=== PATIENT | female | born 1975 | race Hispanic/Latino ===

== ENCOUNTER 2017-08-04 15:19 | Emergency (ER) | payer SELFPAY ==
[2017-08-04 15:47] LABS: APPEARANCE,URINE Clear (CLEAR); BILIRUBIN,URINE Negative (NEGATIVE); COLOR,URINE Yellow (YELLOW); GLUCOSE, URINE (UA) Negative (NEGATIVE); KETONES,URINE Negative (NEGATIVE); LEUKOCYTE ESTERASE ,URINE Trace (NEGATIVE); NITRATE,URINE Negative (NEGATIVE); OCCULT BLOOD,URINE Negative (NEGATIVE); PH,URINE 5.5 (5.0-8.0); PROTEIN,URINE Negative (NEGATIVE); UROBILINOGEN,URINE 0.2 mg/dL (0.2-1.0)
[2017-08-04 15:49] LABS: BASOPHILS % (AUTO) 0.5 % (0.0-5.0); EOSINOPHILS % (AUTO) 2.6 % (0.0-8.0); HEMATOCRIT 42.6 % (36-48); LYMPHOCYTES % (AUTO) 30.9 % (21.0-51.0); MEAN CORPUSCULAR HGB CONC 32.3 g/dL (32.0-36.0); MEAN CORPUSCULAR VOLUME 68.2 fL (79-99); MONOCYTES % (AUTO) 5.6 % (3.0-13.0); NEUTROPHILS % (AUTO) 60.4 % (40.0-77.0); PLATELET COUNT (AUTO) 327 K/uL (130-400); RED BLOOD CELL COUNT(AUTO) 6.25 MIL/uL (4.00-5.50); RED CELL DISTRIBUTION WIDTH 15.1 % (11.0-15.5); WHITE BLOOD COUNT (AUTO) 11.3 K/uL (4.8-10.8)
[2017-08-04 15:54] LABS: AMPHET/METH SCREEN,URINE NEGATIVE (NEGATIVE); BARBITURATE SCREEN, URINE NEGATIVE (NEGATIVE); BENZODIAZEPINES SCREEN,URINE NEGATIVE (NEGATIVE); CANNABINOID SCREEN,URINE NEGATIVE (NEGATIVE); COCAINE SCREEN,URINE NEGATIVE (NEGATIVE); OPIATE SCREEN,URINE NEGATIVE (NEGATIVE); PHENCYCLIDINE SCREEN,URINE NEGATIVE (NEGATIVE)
[2017-08-04 15:56] LABS: BACTERIA,URINE Rare /HPF (None Seen); RBC,URINE None Seen /HPF (0-1); SQUAMOUS EPITHELIAL CELL,UR 0-2 /HPF (0-2); TRICHOMONAS,URINE Rare /LPF (None Seen); WBC,URINE 0-1 /HPF (0-1)
[2017-08-04 16:02] LABS: CREATININE 0.7 mg/dL (0.5-1.5)
[2017-08-04 16:04] LABS: ALBUMIN 3.6 g/dL (3.5-5.0); BILIRUBIN,TOTAL 0.3 mg/dL (0.2-1.0); TOTAL PROTEIN, SERUM 7.4 g/dL (6.0-8.3)
== END 2017-08-04 16:48 | disposition home or self-care (01) ==
LOC: EDH 15:19
DX: R53.1 Weakness (principal); E86.0 Dehydration; F41.1 Generalized anxiety disorder; I10 Essential (primary) hypertension; F20.9 Schizophrenia, unspecified; F31.9 Bipolar disorder, unspecified; Z90.710 Acquired absence of both cervix and uterus; Z98.890 Other specified postprocedural states; Z87.891 Personal history of nicotine dependence
CPT/HCPCS: 36415; 80053; 80305; 81001; 85025

== ENCOUNTER 2019-02-15 18:22 | Emergency (ER) | payer OTHER ==
[2019-02-15] MEDS ORDERED: ONDANSETRON ODT 4 MG TAB ONE (19:01)
[2019-02-15] MEDS ORDERED: MECLIZINE HCL 25 MG TABLET ONE (19:01)
[2019-02-15 19:14] LABS: APPEARANCE,URINE Clear (CLEAR); BILIRUBIN,URINE Negative (NEGATIVE); COLOR,URINE Yellow (YELLOW); GLUCOSE, URINE (UA) Negative (NEGATIVE); KETONES,URINE Negative (NEGATIVE); LEUKOCYTE ESTERASE ,URINE Small (NEGATIVE); NITRATE,URINE Negative (NEGATIVE); OCCULT BLOOD,URINE Negative (NEGATIVE); PROTEIN,URINE Negative (NEGATIVE)
[2019-02-15 19:17] LABS: BASOPHILS % (AUTO) 0.7 % (0.0-5.0); EOSINOPHILS % (AUTO) 2.6 % (0.0-8.0); MEAN CORPUSCULAR HEMOGLOBIN 21.7 pg (27.0-33.0); MEAN CORPUSCULAR HGB CONC 30.4 g/dL (32.0-36.0); MEAN CORPUSCULAR VOLUME 71.3 fL (79-99); NEUTROPHILS % (AUTO) 57.3 % (40.0-77.0); PLATELET COUNT (AUTO) 400 K/uL (130-400); RED BLOOD CELL COUNT(AUTO) 6.59 MIL/uL (4.00-5.50); RED CELL DISTRIBUTION WIDTH 16.3 % (11.0-15.5); WHITE BLOOD COUNT (AUTO) 11.7 K/uL (4.8-10.8)
[2019-02-15 19:26] LABS: BACTERIA,URINE Few /HPF (None Seen); MUCUS,URINE Few LPF (None Seen); SQUAMOUS EPITHELIAL CELL,UR Few /HPF (0-2)
[2019-02-15 19:26] LABS: CREATININE 0.8 mg/dL (0.5-1.5); POTASSIUM 3.7 mmol/L (3.5-5.1)
[2019-02-15 19:31] LABS: ALBUMIN 3.6 g/dL (3.5-5.0); BILIRUBIN,TOTAL 0.3 mg/dL (0.2-1.0); TOTAL PROTEIN, SERUM 7.8 g/dL (6.0-8.3)
== END 2019-02-15 21:55 | disposition home or self-care (01) ==
LOC: EDH 18:22
DX: H81.10 Benign paroxysmal vertigo, unspecified ear (principal); F20.9 Schizophrenia, unspecified; I10 Essential (primary) hypertension; F32.9 Major depressive disorder, single episode, unspecified; Z90.710 Acquired absence of both cervix and uterus; Z98.890 Other specified postprocedural states; Z87.891 Personal history of nicotine dependence
CPT/HCPCS: 36415; 80053; 81001; 85025

== ENCOUNTER 2022-05-30 19:15 | Emergency (ER) | payer OTHER ==
[~2022-05-30] VITALS: Ht 149.9 cm; Wt 103.9 kg
[2022-05-30 19:52] LABS: BASOPHILS % (AUTO) 0.7 % (0.0-5.0); EOSINOPHILS % (AUTO) 3.5 % (0.0-8.0); HEMATOCRIT 48.5 % (36-48); LYMPHOCYTES % (AUTO) 27.1 % (21.0-51.0); MEAN CORPUSCULAR HEMOGLOBIN 21.7 pg (27.0-33.0); MEAN CORPUSCULAR HGB CONC 30.5 g/dL (32.0-36.0); MEAN CORPUSCULAR VOLUME 71.2 fL (79-99); MONOCYTES % (AUTO) 4.4 % (3.0-13.0); NEUTROPHILS % (AUTO) 63.9 % (40.0-77.0); PLATELET COUNT (AUTO) 414 K/uL (130-400); RED BLOOD CELL COUNT(AUTO) 6.81 MIL/uL (4.00-5.50); RED CELL DISTRIBUTION WIDTH 17.4 % (11.0-15.5); WHITE BLOOD COUNT (AUTO) 15.8 K/uL (4.8-10.8)
[2022-05-30 19:55] LABS: APPEARANCE,URINE CLEAR (CLEAR); BILIRUBIN,URINE NEGATIVE (NEGATIVE); COLOR,URINE DARK-YELLOW (YELLOW); GLUCOSE, URINE (UA) NEGATIVE (NEGATIVE); KETONES,URINE NEGATIVE (NEGATIVE); LEUKOCYTE ESTERASE ,URINE 75 Leu/uL (NEGATIVE); NITRATE,URINE NEGATIVE (NEGATIVE); PH,URINE 5.5 (5.0-8.0); PROTEIN,URINE 30 mg/dL (NEGATIVE); UROBILINOGEN,URINE 0.2 mg/dL (0.2-1.0)
[2022-05-30 19:59] LABS: BACTERIA,URINE RARE /HPF (None Seen); MUCUS,URINE RARE LPF (None Seen); RBC,URINE 0-1 /HPF (0-1); SQUAMOUS EPITHELIAL CELL,UR RARE /HPF (0-2); WBC,URINE 26-50 /HPF (0-1)
[2022-05-30 20:00] LABS: CREATININE 0.7 mg/dL (0.5-1.5); POTASSIUM 3.7 mmol/L (3.5-5.1)
[2022-05-30 20:05] LABS: ALBUMIN 3.9 g/dL (3.5-5.0)
[2022-05-30 20:31] VITALS: BP 113/59
[2022-05-30] MEDS ORDERED: CEFTRIAXONE 1G VIAL ONE (20:55)
[2022-05-30] MEDS ORDERED: ONDANSETRON 4MG INJ ONE (20:55)
[2022-05-30] MEDS ORDERED: KETOROLAC 15MG/ML VIAL (15MG/ML) ONE (20:55)
[2022-05-30] MEDS ORDERED: ONDANSETRON 4MG INJ IVP ONE (21:00)
[2022-05-30] MEDS ORDERED: KETOROLAC 15MG/ML VIAL (15MG/ML) IV ONE (21:00)
[2022-05-30] MEDS ORDERED: CEFTRIAXONE 1G VIAL IVPB ONE (21:00)
[2022-05-30] MEDS ORDERED: 0.9%NACL 1000ML 1,000 ML IV ONE (21:00)
[2022-05-30] MEDS ORDERED: IOHEXOL 350 MG/ML 100ML INFUS..BTL IV ONE (21:11)
[2022-05-30] MEDS ORDERED: ONDA-104 PO (22:06)
[2022-05-30] MEDS ORDERED: CEPH500C2 PO (22:06)
[2022-05-30] MEDS ORDERED: PHEN-847 PO (22:06)
[2022-05-30] MEDS ORDERED: IBUP-2070 PO (22:06)
[2022-05-30] MEDS ORDERED: PHENAZOPYRIDINE HCL 200 MG TABLET PO ONE (22:30)
== END 2022-05-30 22:18 | disposition home or self-care (01) ==
LOC: EDH 19:15
DX: N12 Tubulo-interstitial nephritis, not specified as acute or chronic (principal); I10 Essential (primary) hypertension; K21.9 Gastro-esophageal reflux disease without esophagitis; Z90.89 Acquired absence of other organs; Z90.710 Acquired absence of both cervix and uterus
CPT/HCPCS: 99285; 74177; 96374; 96375; 80053; 85025; 87088; 81001; 81025; 36415; J0696; J2405; J1885; Q9967; 87077; 87186

== ENCOUNTER 2023-08-06 13:04 | Emergency (ER) | payer BC ==
[~2023-08-06] VITALS: Ht 149.9 cm; Wt 108.9 kg
[~2023-08-06 13:04] MED LIST: CEPH500C2 PO; IBUP-2070 PO; IBUP-2077 PO; LEVO-70 PO; ONDA-104 PO; PHEN-847 PO
[2023-08-06 15:52] LABS: BASOPHILS % (AUTO) 0.7 % (0.0-5.0); EOSINOPHILS % (AUTO) 2.9 % (0.0-8.0); HEMATOCRIT 46.3 % (36-48); IMMATURE GRANULOCYTE ABSOLUTE 0.06 K/uL (0-1); LYMPHOCYTES # (AUTO) 3.7 K/uL (1.0-4.8); LYMPHOCYTES % (AUTO) 27.3 % (21.0-51.0); MEAN CORPUSCULAR HEMOGLOBIN 21.7 pg (27.0-33.0); MEAN CORPUSCULAR HGB CONC 30.9 g/dL (32.0-36.0); MEAN CORPUSCULAR VOLUME 70.4 fL (79-99); MONOCYTES # (AUTO) 0.7 K/uL (0.1-1.0); NEUTROPHILS # (AUTO) 8.7 K/uL (1.8-7.7); NEUTROPHILS % (AUTO) 63.7 % (40.0-77.0); PLATELET COUNT (AUTO) 355 K/uL (130-400); RED BLOOD CELL COUNT(AUTO) 6.58 MIL/uL (4.00-5.50); RED CELL DISTRIBUTION WIDTH 17.3 % (11.0-15.5); WHITE BLOOD COUNT (AUTO) 13.7 K/uL (4.8-10.8)
[2023-08-06 15:58] LABS: APPEARANCE,URINE CLEAR (CLEAR); BILIRUBIN,URINE NEGATIVE (NEGATIVE); COLOR,URINE COLORLESS (YELLOW); GLUCOSE, URINE (UA) NEGATIVE (NEGATIVE); KETONES,URINE NEGATIVE (NEGATIVE); LEUKOCYTE ESTERASE ,URINE 250 Leu/uL (NEGATIVE); NITRATE,URINE NEGATIVE (NEGATIVE); OCCULT BLOOD,URINE NEGATIVE (NEGATIVE); PROTEIN,URINE NEGATIVE (NEGATIVE); UROBILINOGEN,URINE 0.2 mg/dL (0.2-1.0)
[2023-08-06 16:01] LABS: CREATININE 0.7 mg/dL (0.5-1.0); POTASSIUM 4.2 mmol/L (3.5-5.1)
[2023-08-06 16:03] LABS: INR 0.98 (0.85-1.15); PROTHROMBIN TIME 10.6 SEC (9.6-11.6)
[2023-08-06 16:04] LABS: PARTIAL THROMBOPLASTIN TIME 25.3 SEC (26.3-35.5)
[2023-08-06 16:05] LABS: BACTERIA,URINE RARE /HPF (None Seen); SQUAMOUS EPITHELIAL CELL,UR FEW /HPF (0-2)
[2023-08-06 16:05] LABS: ALBUMIN 3.4 g/dL (3.5-5.0); BILIRUBIN,TOTAL 0.3 mg/dL (0.2-1.0); TOTAL PROTEIN, SERUM 7.3 g/dL (6.0-8.3)
[2023-08-06 16:09] LABS: HCG,QUALITATIVE URINE NEGATIVE (NEGATIVE)
[2023-08-06] MEDS ORDERED: CEPH500T PO (17:11)
[2023-08-06] MEDS: ONDANSETRON 4MG INJ IVP ONE (17:31)
[2023-08-06] MEDS: 0.9%NACL 1000ML 1,000 ML IV ONE (17:31)
[2023-08-06] MEDS: CEFTRIAXONE 2GM VIAL IVPB ONE (17:31)
[2023-08-06] MEDS: KETOROLAC 60 MG VIAL (30MG/ML) IM ONE (17:32)
[2023-08-06 18:06] VITALS: BP 148/72; PULSE 72; RESP 18; O2SAT 98
== END 2023-08-06 18:38 | disposition home or self-care (01) ==
LOC: EDH 13:04
DX: N39.0 Urinary tract infection, site not specified (principal); I10 Essential (primary) hypertension; Z90.710 Acquired absence of both cervix and uterus; Z98.890 Other specified postprocedural states
CPT/HCPCS: 99284; 96365; 70450; 96375; 80053; 85025; 85610; 85730; 81001; 81025; 36415; 96372; J7030; J0696; J2405; J1885

== ENCOUNTER 2024-03-19 08:21 | Emergency (ER) | payer BC ==
[~2024-03-19] VITALS: Ht 149.9 cm; Wt 105.2 kg
[~2024-03-19 08:21] MED LIST changes: +CEPH500T PO
--- NOTE | 2024-03-19 08:31 | EKG ---
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
--- NOTE | 2024-03-19 08:51 | ERN ---
ED Note History of Present Illness Stated Complaint: CHEST PRESSURE Chief Complaint: Chest Wall Pain Time Seen by MD: 08:37 Dictation: The patient is a 48-year-old female with a medical history of hypertension and post-traumatic stress disorder presented to the emergency department with primary complaints of chest pressure and a general feeling of illness. Approximately one week ago, she began experiencing sensations described as "weird and uncomfortable pressure in the middle and left side of the chest." Following this onset, she consulted her primary care physician, who advised her to seek urgent care. The patient is uncertain about the specific tests conducted during her urgent care visit, but she recalls that a chest X-ray indicated changes consistent with acute bronchitis. She was prescribed with amoxicillin and after taking it she felt like stomach upset, itching and tingling. Her symptoms have persisted, and she has also been suffering from headaches, for which she has been taking ibuprofen. Additionally, she has experienced several episodes of vomiting, characterized by the expulsion of acidic contents. The patient has a known history of gastroesophageal reflux disease, which contributes to her intermittent vomiting; she reports feeling significantly better after these episodes. She ceased smoking cigarettes two weeks ago and denies any use of drugs or alcohol. Furthermore, she does not report e xperiencing lightheadedness, diarrhea, abdominal pain, or any previous occurrences of similar illness. Allergies: Coded Allergies: No Known Drug Allergies (Unverified Allergy, Unknown, 02/15/19) Home Meds Active Scripts Cephalexin (Cephalexin) 500 Mg Tablet, 500 MG PO BID for 7 Days, #14 TAB Prov:KAYLEY HASSAN 08/06/23 Ibuprofen (Ibuprofen 800 mg Tab) 800 Mg Tab, 800 MG PO Q8H PRN for fever or pain, #30 TAB 0 Refills Prov:LISANDRO WILLIAMSON NP 08/03/23 Levofloxacin (Levofloxacin) 500 Mg Tablet, 500 MG PO DAILY for 10 Days, #10 TAB Prov:LISANDRO WILLIAMSON NP 08/03/23 Phenazopyridine HCl (Pyridium) 200 Mg Tab, 200 MG PO TID for 3 Days, #9 TAB Prov:LAMIN NAPOLES 05/30/22 Ondansetron HCl (Ondansetron HCl) 4 Mg Tablet, 4 MG PO TID for 3 Days, #9 TAB Prov:LAMIN NAPOLES 05/30/22 Ibuprofen (Ibuprofen) 600 Mg Tablet, 600 MG PO Q6H PRN for PAIN, #15 TAB Prov:LAMIN NAPOLES 05/30/22 Cephalexin (Cephalexin) 500 Mg Capsule, 500 MG PO TID for 10 Days, #30 CAP Prov:LAMIN NAPOLES 05/30/22 Past Medical History Past Medical History: Hypertension Additional Past Medical Hx: PTSD Surgical History: Hysterectomy, Tonsillectomy, History: Not Applicable Review of System Dictation REVIEW OF SYSTEMS CONSTITUTIONAL: Denies fevers, chills, or night sweats. No unintentional weight loss reported. NEUROLOGICAL: c/o headache, no amaurosis fugax, motor weakness, sensory deficit, vertigo/spinning sensation, gait abnormalities, or tremors. ENT: No hearing loss, otalgia, otorrhea, rhinitis, rhinorrhea, hoarseness, or sore throat. CARDIOVASCULAR: c/o middle and left side chest pressure, Denies any exertional angina, dyspnea on exertion, orthopnea, paroxysmal nocturnal dyspnea, palpitations, life-threatening arrhythmias, claudication. PULMONARY: Denies any shortness of breath, cough, phlegm/sputum, hemoptysis, pleuritic chest pain. SLEEP: Denies morning headaches, daytime somnolence or napping. Denies difficulty falling asleep, staying asleep, waking from sleep. Denies knowledge of snoring. GASTROINTESTINAL: c/o vomiting with acid, Denies any type of dysphagia to either liquids or solids. Denies nausea, vomiting, pyrosis, early satiety, abdominal pain, diarrhea, constipation, or changes in stool consistency or caliber. Denies coffee-ground emesis, hematemesis, hematochezia, or melanotic stools. GENITOURINARY: c/o frequency, urgency, no nocturia, hematuria or incontinence (Storage/Irritative symptoms.) Low urinary stream, straining to void, urinary i ntermittency or hesitancy, splitting of the voiding stream, terminal dribbling. ENDOCRINOLOGIC: Denies polyuria, polydipsia, polyphagia or heat/cold intolerances. HEMATOLOGIC: Denies thrombophilia/previous clots, or coagulopathy/bleeding disorders. ONCOLOGIC: Denies personal history of malignancy. DERMATOLOGIC: Denies rashes or pruritus. PSYCHIATRIC: Denies any suicidal or homicidal ideation. Denies hallucinations. Initial Vital Sign VS Vital Signs Date Time Temp Pulse Resp B/P (MAP) Pulse Ox O2 Delivery O2 Flow Rate FiO2 03/19/24 08:24 98.1 79 20 174/90 98 Room Air 0 03/19/24 10:10 21 Physical Exam Dictation PHYSICAL EXAM GENERAL APPEARANCE: The patient is awake, alert, and oriented, in no acute cardiopulmonary distress. NEUROLOGICAL: Cranial nerves II-XII grossly intact. Motor is 5/5 in bilateral upper and lower extremities proximal to distal. No sensory deficits. HEENT: Face is symmetric. Pupils are equal and reactive. Extraocular movements are intact. NECK: Supple. No JVD. No thyromegaly. No submental, submandibular, pre- /postauricular, occipital or supraclavicular lymphadenopathy. CHEST: Normal chest expansion. No Telemetry. LUNGS: Absence of any rales, rhonchi or any wheezing. CARDIOVASCULAR: Regular. S1 and S2 normal. No appreciable rubs, murmurs or gallops. ABDOMEN: Soft, nontender, and nondistended. There is no rebound, voluntary guarding, or rigidity. : Deferred. No Harmon. EXTREMITIES: Non-edematous and not cyanotic. No clubbing. Good capillary refill. SKIN: No skin breakdown. Results (Laboratory/Radiology) Laboratory/Radiology Laboratory Tests Test 03/19/24 08:21 03/19/24 08:44 03/19/24 08:51 Urine Color COLORLESS (YELLOW) Urine Appearance CLEAR (CLEAR) Urine pH 7.0 (5.0-8.0) Urine Specific [place] 1.001 (1.001-1.031) Urine Protein NEGATIVE mg/dL (NEGATIVE) Urine Glucose (UA) NEGATIVE mg/dL (NEGATIVE) Urine Ketones NEGATIVE mg/dL (NEGATIVE) Urine Occult Blood NEGATIVE (NEGATIVE) Urine Nitrate NEGATIVE (NEGATIVE) Urine Bilirubin NEGATIVE mg/dL (NEGATIVE) Urine Urobilinogen 0.2 mg/dL (0.2-1.0) Urine Leukocyte Esterase NEGATIVE [place]/uL Influenza Type A Antigen Negative For Type A Influenza Type B Antigen Negative For Type B SARS-CoV-2 Antigen (Rapid) PRESUMPTIVE NEGATIVE White Blood Count 10.7 K/uL (4.8-10.8) Red Blood Count 6.56 MIL/uL (4.00-5.50) H Hemoglobin 14.4 g/dL (12.0-16.0) Hematocrit 46.3 % (36-48) Mean Corpuscular Volume 70.6 fL (79-99) L Mean Corpuscular Hemoglobin 22.0 pg (27.0-33.0) L Mean Corpuscular Hemoglobin Concent 31.1 g/dL (32.0-36.0) L Red Cell Distribution Width 17.4 % (11.0-15.5) H Platelet Count 336 K/uL (130-400) Mean Platelet Volume 10.1 fL (7.5-10.5) Immature Granulocyte % (Auto) 0.6 % (0-1) Neutrophils (%) (Auto) 61.5 % (40.0-77.0) Lymphocytes (%) (Auto) 27.0 % (21.0-51.0) Monocytes (%) (Auto) 5.3 % (3.0-13.0) Eosinophils (%) (Auto) 4.9 % (0.0-8.0) Basophils (%) (Auto) 0.7 % (0.0-5.0) Neutrophils # (Auto) 6.6 K/uL (1.8-7.7) Lymphocytes # (Auto) 2.9 K/uL (1.0-4.8) Monocytes # (Auto) 0.6 K/uL (0.1-1.0) Eosinophils # (Auto) 0.53 K/uL (0.00-0.70) Basophils # (Auto) 0.07 K/uL (0.00-0.20) Absolute Immature Granulocyte (auto 0.06 K/uL (0-1) Nucleated Red Blood Cells 0.0 % (0.0-0.19) Sodium Level 138 mmol/L (136-145) Potassium Level 3.9 mmol/L (3.5-5.1) Chloride Level 103 mmol/L (101-111) Carbon Dioxide Level 30 mmol/L (21-32) Blood Urea Nitrogen 5 mg/dL (7-18) L Creatinine 0.7 mg/dL (0.5-1.0) Glomerular Filtration Rate Calc 108 mL/min (>90) Random Glucose 117 mg/dL (70-105) H Total Calcium 8.7 mg/dL (8.5-10.1) Troponin I High Sensitivity 5 ng/L (4-50) ED Course ED Course Orders Procedure Category Date Status Time 12 Lead Ekg Tracing- EKG 03/19/24 Complete Technical 08:29 Troponin I High LAB 03/19/24 Complete Sensitivity 08:37 Cbc With Differential LAB 03/19/24 In Process 08:37 Basic Metabolic Panel LAB 03/19/24 Complete 08:37 Urinalysis Profile LAB 03/19/24 Complete 08:37 Chest 1vw RAD 03/19/24 Taken 08:37 Pantoprazole 40mg Inj PHA 03/19/24 Complete (Protonix 40mg Inj 09:00 Covid19 (Sars Antigen LAB 03/19/24 Complete Rapid) 08:41 Influenza Type A & B, LAB 03/19/24 Complete Rapid 08:41 Mag/Alum/Simeth 30ml PHA 03/19/24 Complete (Maalox Plus 30ml) 09:00 Vital Signs Per CPOE 03/19/24 Transmitted Routine 10:00 Diphenhydramine Hcl PHA 03/19/24 Complete (Benadryl Inj) 10:30 Acetaminophen 500mg PHA 03/19/24 In Process Tab (Tylenol 500mg T 11:00 Current Medications Medications (Trade) Dose Ordered Sig/Ino Route PRN Reason Start Time Stop Time Status Last Admin Dose Admin Acetaminophen (TYLenol 500MG TAB) 500 mg ONCE ONCE PO 03/19/24 11:00 03/19/24 11:01 Al Hydroxide/Mg Hydroxide (MAALox PLUS 30ML) 15 ml ONCE ONCE PO 03/19/24 09:00 03/19/24 09:01 DC 03/19/24 09:17 Diphenhydramine HCl (BENAdryl INJ) 25 mg ONCE ONCE IM 03/19/24 10:30 03/19/24 10:31 DC Pantoprazole Sodium (PROTonix 40MG INJ) 40 mg ONCE ONCE IVP 03/19/24 09:00 03/19/24 09:01 DC Vital Signs Date Time Temp Pulse Resp B/P (MAP) Pulse Ox O2 Delivery O2 Flow Rate FiO2 03/19/24 10:10 98.1 65 20 140/69 98 Room Air* 0 21 03/19/24 08:24 98.1 79 20 174/90 98 Room Air 0 08:45: The patient was assessed in the emergency department triage room 1. She appears to be somewhat anxious regarding her current health status. Her blood pressure is elevated at 174/90, with a pulse rate of 80 and oxygen saturation at 99% on room air. She is seated comfortably and is able to provide a comprehensive account of her medical history. We will proceed with ordering basic laboratory tests and conducting a cardiac evaluation to determine if the patient necessitates any emergency intervention or inpatient care. At this mom ent, her symptoms suggest gastritis, peptic ulcer disease, or gastroesophageal reflux disease (GERD). We will administer a gastrointestinal cocktail and pantoprazole, followed by a re-evaluation of her condition. Once the test results and laboratory findings are available, we will offer further recommendations. Continuous monitoring of the patient will be maintained. 10:20 The patient was reassessed in ED fast track. She has felt little better and the SBP went down to 140 from 170 on presentation. Chest x-ray suggestive bronchitis with no infiltrates. She explains that she is going through some stress and anxiety and that could attribute current symptoms. We will closely monitor the patient for now. 11:03: The patient appears comfortable, says feeling mild headaches. Upon examination, no weakness or neurological abnormalities. We will give tylenol to help with headaches. At this point, we think that the patient's symptoms are secondary to gastritis/GERD along with anxiety. The patient does not require a [place] emergency treatment or inpatient hospitalization. Lab results and the management plan was discussed in detail with the patient. The patient verbalizes understanding. HEART Score Response (Comments) Value History: Low suspicion (0) 0 EKG: Normal 0 Age: 45-65yrs (+1) 1 Risk Factors: 1-2 risk factors (+1) 1 Total 2 CHADS-VASc Score Response (Comments) Value Sex: Female (+1) 1 CHF History: No (0) 0 Hypertension Hx: Yes (+1) 1 Stroke/TIA/Thromboembolism Hx: No (0) 0 Vascular Disease Hx(prior PA, CAD, PAD, etc.): No (0) 0 Diabetes Hx: No (0) 0 Thromboembolism Risk: Low Risk (0-1) Antithrombotic Therapy Recommendations: No Therapy Needed (0-1) Total 2 Medical Decision Making MDM MDM Differential diagnosis: Acute bronchitis, GERD, Gastritis, Acute anxiety epi sode, Allergy to penicillin Rationale: Tests considered and ordered secondary to shared decision making include: Previous outside records reviewed: Old ER visits. Risk of complication and/or morbidity or mortality of patient management: None Medications-Per medication reconciliation Need for hospitalization: Patient does not meet criteria for hospitalization. Need for emergency major/minor surgery: No There are no social concerns with this patient. Prescription drug management Prescriptions will include symptomatic care Patient's prior external medical records from other ER visits were reviewed by me as indicated. Prior testing and results from previous visits were reviewed. Prior tests were taken into account with medical decision making and resource utilization, independent historian/historians were used to obtain complete medical history. I independently interpreted the test that were performed, results were reviewed by me and considered findings on radiology if ordered. DX & DISP Disposition: Discharge Departure Impression: Primary Impression: Acute bronchitis Additional Impressions: Gastroesophageal reflux disease, Gastritis, Acute anxiety, Allergy to amoxicillin Condition: Stable Additional Instructions: Acute bronchitis: Get lots of rest and sleep Drink lots of fluids to thin mucus Take an [id number] pain reliever like acetaminophen (Tylenol) Take an [id number] cough medicine if needed Gastroesophageal reflux disease/ GERD Avoid foods that trigger symptoms, such as citrus, tomatoes, chocolate, and carbonated beverages Avoid NSAIDS like ibuprofen Eat several small meals instead of large meals Wait 23 hours after eating before lying down Antacids and acid reducers can relieve heartburn and indigestion. Practice relaxation techniques like deep breathing, meditation, or yoga. Engage in regular physical activity, but avoid strenuous exercise right after eating. Consider cognitive behavioral therapy (CBT) to address anxiety. Follow up with the primary care provider within 7 days of the discharge. Visit the nearest emergency department or call 911 should you experience w orsening of symptoms. Referrals: SELF,REFERRAL (PCP) I have reviewed, & agreed with my scribe's, documentation. I have reviewed the case, and I agree with, Diagnosis and Plan I have examined patient, & reviewed all documents, & agreed W/ the Diagnosis, and Plan NANCY SAUCEDO MD Mar 19, 2024 08:51
[2024-03-19 09:06] LABS: BASOPHILS # (AUTO) 0.07 K/uL (0.00-0.20); BASOPHILS % (AUTO) 0.7 % (0.0-5.0); EOSINOPHILS # (AUTO) 0.53 K/uL (0.00-0.70); EOSINOPHILS % (AUTO) 4.9 % (0.0-8.0); HEMATOCRIT 46.3 % (36-48); IMMATURE GRANULOCYTE ABSOLUTE 0.06 K/uL (0-1); LYMPHOCYTES # (AUTO) 2.9 K/uL (1.0-4.8); MEAN CORPUSCULAR HGB CONC 31.1 g/dL (32.0-36.0); MEAN CORPUSCULAR VOLUME 70.6 fL (79-99); MONOCYTES # (AUTO) 0.6 K/uL (0.1-1.0); MONOCYTES % (AUTO) 5.3 % (3.0-13.0); NEUTROPHILS # (AUTO) 6.6 K/uL (1.8-7.7); NEUTROPHILS % (AUTO) 61.5 % (40.0-77.0); PLATELET COUNT (AUTO) 336 K/uL (130-400); RED BLOOD CELL COUNT(AUTO) 6.56 MIL/uL (4.00-5.50); RED CELL DISTRIBUTION WIDTH 17.4 % (11.0-15.5); WHITE BLOOD COUNT (AUTO) 10.7 K/uL (4.8-10.8)
[2024-03-19 09:12] LABS: APPEARANCE,URINE CLEAR (CLEAR); BILIRUBIN,URINE NEGATIVE (NEGATIVE); COLOR,URINE COLORLESS (YELLOW); GLUCOSE, URINE (UA) NEGATIVE (NEGATIVE); KETONES,URINE NEGATIVE (NEGATIVE); LEUKOCYTE ESTERASE ,URINE NEGATIVE Leu/uL (NEGATIVE); NITRATE,URINE NEGATIVE (NEGATIVE); OCCULT BLOOD,URINE NEGATIVE (NEGATIVE); PROTEIN,URINE NEGATIVE (NEGATIVE); UROBILINOGEN,URINE 0.2 mg/dL (0.2-1.0)
[2024-03-19] MEDS: MAG/ALUM/SIMETH 30 ML UDCUP PO ONE (09:17)
[2024-03-19 09:21] LABS: ADD UA MICROSCOPIC NO
[2024-03-19 09:22] LABS: CREATININE 0.7 mg/dL (0.5-1.0); POTASSIUM 3.9 mmol/L (3.5-5.1)
[2024-03-19 09:28] LABS: COVID19 (SARS ANTIGEN RAPID) PRESUMPTIVE NEGATIVE (NEGATIVE); INFLUENZA TYPE A Negative For Type A (NEGATIVE); INFLUENZA TYPE B Negative For Type B (NEGATIVE)
[2024-03-19] MEDS: PANTOPrazole 40 MG/VIAL IVP ONE (09:43)
[2024-03-19] MEDS: DiphenhydrAMINE HCL 50 MG/ML VIAL IM ONE (10:35)
[2024-03-19] MEDS: acetaMINOPHEN 500 MG TABLET PO ONE (11:02)
[2024-03-19 11:09] VITALS: BP 140/69; PULSE 65; RESP 20; TEMP 98.1; O2SAT 98
--- NOTE | 2024-03-19 11:56 | HMCIMG ---
CHEST 1VW HISTORY: Chest pain COMPARISON: 03/26/2012 FINDINGS: A frontal projection of the chest was obtained. No acute pulmonary infiltrates is seen. The heart is borderline enlarged. Prominent interstitial markings are seen. No evidence of aortic calcification is seen. IMPRESSION: 1. No acute pulmonary infiltrate is seen.
== END 2024-03-19 11:17 | disposition home or self-care (01) ==
LOC: EDH 08:21
DX: J20.9 Acute bronchitis, unspecified (principal); K21.9 Gastro-esophageal reflux disease without esophagitis; K29.00 Acute gastritis without bleeding; F41.9 Anxiety disorder, unspecified; I10 Essential (primary) hypertension; Z88.0 Allergy status to penicillin; Z90.710 Acquired absence of both cervix and uterus; Z20.822 Contact with and (suspected) exposure to COVID-19
CPT/HCPCS: 99284; 71045; 87426; 84484; 80048; 85025; 87804 ×2; 81003; 36415; 93005; J1200

== ENCOUNTER 2024-05-24 10:17 | Emergency (ER) | payer BC ==
[~2024-05-24] VITALS: Ht 149.9 cm; Wt 108.9 kg
[2024-05-24 11:06] LABS: BASOPHILS # (AUTO) 0.07 K/uL (0.00-0.20); BASOPHILS % (AUTO) 0.7 % (0.0-5.0); EOSINOPHILS # (AUTO) 0.34 K/uL (0.00-0.70); EOSINOPHILS % (AUTO) 3.4 % (0.0-8.0); HEMATOCRIT 45.4 % (36-48); IMMATURE GRANULOCYTE ABSOLUTE 0.05 K/uL (0-1); LYMPHOCYTES # (AUTO) 2.5 K/uL (1.0-4.8); LYMPHOCYTES % (AUTO) 25.1 % (21.0-51.0); MEAN CORPUSCULAR HEMOGLOBIN 22.1 pg (27.0-33.0); MEAN CORPUSCULAR HGB CONC 30.4 g/dL (32.0-36.0); MEAN CORPUSCULAR VOLUME 72.6 fL (79-99); MONOCYTES # (AUTO) 0.5 K/uL (0.1-1.0); NEUTROPHILS # (AUTO) 6.6 K/uL (1.8-7.7); NEUTROPHILS % (AUTO) 65.3 % (40.0-77.0); PLATELET COUNT (AUTO) 274 K/uL (130-400); RED BLOOD CELL COUNT(AUTO) 6.25 MIL/uL (4.00-5.50); RED CELL DISTRIBUTION WIDTH 17.4 % (11.0-15.5); WHITE BLOOD COUNT (AUTO) 10.1 K/uL (4.8-10.8)
[2024-05-24] MEDS: 0.9%NACL 1000ML 1,000 ML IV ONE (11:09)
[2024-05-24] MEDS: ondanSETRON 4MG INJ IVP ONE (11:09)
[2024-05-24 11:13] LABS: CREATININE 0.7 mg/dL (0.5-1.0)
[2024-05-24 11:17] LABS: ALBUMIN 3.5 g/dL (3.5-5.0); BILIRUBIN,DIRECT 0.1 mg/dL (0.0-0.3); BILIRUBIN,TOTAL 0.3 mg/dL (0.2-1.0); TOTAL PROTEIN, SERUM 7.5 g/dL (6.0-8.3)
--- NOTE | 2024-05-24 11:17 | EKG ---
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
[2024-05-24 11:21] LABS: RAPID GROUP A STREP negative (NEGATIVE)
[2024-05-24 11:31] LABS: INFLUENZA TYPE A Negative For Type A (NEGATIVE); INFLUENZA TYPE B Negative For Type B (NEGATIVE)
[2024-05-24 11:44] LABS: APPEARANCE,URINE CLEAR (CLEAR); BILIRUBIN,URINE NEGATIVE (NEGATIVE); COLOR,URINE LIGHT-YELLOW (YELLOW); GLUCOSE, URINE (UA) NEGATIVE (NEGATIVE); KETONES,URINE NEGATIVE (NEGATIVE); LEUKOCYTE ESTERASE ,URINE NEGATIVE Leu/uL (NEGATIVE); NITRATE,URINE NEGATIVE (NEGATIVE); OCCULT BLOOD,URINE NEGATIVE (NEGATIVE); PH,URINE 6.5 (5.0-8.0); PROTEIN,URINE NEGATIVE (NEGATIVE); UROBILINOGEN,URINE 0.2 mg/dL (0.2-1.0)
[2024-05-24 11:59] LABS: ADD UA MICROSCOPIC NO
[2024-05-24 12:06] LABS: COVID19 (SARS ANTIGEN RAPID) PRESUMPTIVE NEGATIVE (NEGATIVE)
--- NOTE | 2024-05-24 12:20 | HMCIMG ---
CHEST 1VW HISTORY: Fever COMPARISON: None FINDINGS: A frontal projection of the chest was obtained. No acute pulmonary infiltrates is seen. The heart is normal in size. Prominent interstitial markings are seen. Degenerative changes are seen. No evidence of aortic calcification is seen. IMPRESSION: 1. No acute pulmonary infiltrate is seen.
[2024-05-24 13:32] VITALS: BP 145/75; PULSE 70; RESP 16; TEMP 98.9; O2SAT 100
[2024-05-24] MEDS ORDERED: AMOX1TAB16 PO (14:13)
--- NOTE | 2024-05-24 14:13 | ERN ---
ED Note History of Present Illness Stated Complaint: FEVER/ LEFT EAR FULLNESS/ VOMITING Chief Complaint: Fever Time Seen by MD: 10:19 Dictation: 48-year-old female complaining of cough cold congestion and left ear stuffiness, patient also reported some nausea no vomiting, no abdominal pain. Patient reports not feeling well over the past few days with positive sick contacts at home no chest pain or shortness of breath. Allergies: Coded Allergies: No Known Drug Allergies (Unverified Allergy, Unknown, 02/15/19) Home Meds Active Scripts Cephalexin (Cephalexin) 500 Mg Tablet, 500 MG PO BID for 7 Days, #14 TAB Prov:KAYLEY HASSAN 08/06/23 Ibuprofen (Ibuprofen 800 mg Tab) 800 Mg Tab, 800 MG PO Q8H PRN for fever or pain, #30 TAB 0 Refills Prov:LISANDRO WILLIAMSON NP 08/03/23 Levofloxacin (Levofloxacin) 500 Mg Tablet, 500 MG PO DAILY for 10 Days, #10 TAB Prov:LISANDRO WILLIAMSON NP 08/03/23 Phenazopyridine HCl (Pyridium) 200 Mg Tab, 200 MG PO TID for 3 Days, #9 TAB Prov:LAMIN NAPOLES 05/30/22 Ondansetron HCl (Ondansetron HCl) 4 Mg Tablet, 4 MG PO TID for 3 Days, #9 TAB Prov:LAMIN NAPOLES 05/30/22 Ibuprofen (Ibuprofen) 600 Mg Tablet, 600 MG PO Q6H PRN for PAIN, #15 TAB Prov:LAMIN NAPOLES 05/30/22 Cephalexin (Cephalexin) 500 Mg Capsule, 500 MG PO TID for 10 Days, #30 CAP Prov:LAMIN NAPOLES 05/30/22 Past Medical History Past Medical History: Hypertension Additional Past Medical Hx: PTSD Surgical History: Hysterectomy, Tonsillectomy, History: Not Applicable Review of System Dictation Constitutional: Per HPI Eyes: Negative for injury, pain,redness, and discharge ENT per HPI Cardiovascular: Negative for chest pain, palpitations, and edema Respiratory: Negative for shortness of breath, cough, and wheezing, Abdomen/GI: Negative for abdominal pain, nausea, vomiting, diarrhea, and constipation Back: Negative for injury and pain : Negative for injury, bleeding and discharge MS/Extremity: Negative for injury and deformity Skin: Negative for rash, and discoloration Neuro: Negative for headache, weakness, numbness, tingling, and seizure Psych: Negative for suicide ideation, homicidal ideation, and hallucinations Initial Vital Sign VS Vital Signs Date Time Temp Pulse Resp B/P (MAP) Pulse Ox O2 Delivery O2 Flow Rate FiO2 05/24/24 10:20 98.2 78 16 149/76 99 Room Air 0 05/24/24 11:19 21 Physical Exam Dictation General: awake, alert, NAD Head/Face: Normocephalic, atraumatic Eyes: PERRL, EOMI, vision at baseline ENT: oral cavity clear, left otitis media Neck: Trachea midline, supple, no nuchal rigidity Cardiovascular: RRR, normal S1/S2, No MRGs, no JVD Respiratory: CTAB, no respiratory distress, No rales or wheezes Abdomen: Soft, non-tender, non-distended, normal bowel sounds, no guarding or rebound. Skin: Warm, dry, normal turgor, no rash MS/Extremity: Pulses equal, no cyanosis, neurovascular intact, FROM Neuro: COAx4, GCS 15, strength 5/5, CN 2-12 intact, normal cerebellar exam, normal gait, Psych: Normal behavior, mood, and affect normal Results (Laboratory/Radiology) Laboratory/Radiology Laboratory Tests Test 05/24/24 10:54 05/24/24 11:05 05/24/24 11:35 White Blood Count 10.1 K/uL (4.8-10.8) Red Blood Count 6.25 MIL/uL (4.00-5.50) H Hemoglobin 13.8 g/dL (12.0-16.0) Hematocrit 45.4 % (36-48) Mean Corpuscular Volume 72.6 fL (79-99) L Mean Corpuscular Hemoglobin 22.1 pg (27.0-33.0) L Mean Corpuscular Hemoglobin Concent 30.4 g/dL (32.0-36.0) L Red Cell Distribution Width 17.4 % (11.0-15.5) H Platelet Count 274 K/uL (130-400) Mean Platelet Volume 9.5 fL (7.5-10.5) Immature Granulocyte % (Auto) 0.5 % (0-1) Neutrophils (%) (Auto) 65.3 % (40.0-77.0) Lymphocytes (%) (Auto) 25.1 % (21.0-51.0) Monocytes (%) (Auto) 5.0 % (3.0-13.0) Eosinophils (%) (Auto) 3.4 % (0.0-8.0) Basophils (%) (Auto) 0.7 % (0.0-5.0) Neutrophils # (Auto) 6.6 K/uL (1.8-7.7) Lymphocytes # (Auto) 2.5 K/uL (1.0-4.8) Monocytes # (Auto) 0.5 K/uL (0.1-1.0) Eosinophils # (Auto) 0.34 K/uL (0.00-0.70) Basophils # (Auto) 0.07 K/uL (0.00-0.20) Absolute Immature Granulocyte (auto 0.05 K/uL (0-1) Nucleated Red Blood Cells 0.0 % (0.0-0.19) Red Blood Cell Morphology See comments Sodium Level 137 mmol/L (136-145) Potassium Level 4.0 mmol/L (3.5-5.1) Chloride Level 103 mmol/L (101-111) Carbon Dioxide Level 30 mmol/L (21-32) Blood Urea Nitrogen 10 mg/dL (7-18) Creatinine 0.7 mg/dL (0.5-1.0) Glomerular Filtration Rate Calc 108 mL/min (>90) Random Glucose 127 mg/dL (70-105) H Lactic Acid Level 1.3 mmol/L (0.8-2.5) Total Calcium 8.8 mg/dL (8.5-10.1) Total Bilirubin 0.3 mg/dL (0.2-1.0) Direct Bilirubin 0.1 mg/dL (0.0-0.3) Aspartate Amino Transf (AST/SGOT) 21 U/L (10-37) Alanine Aminotransferase (ALT/SGPT) 27 U/L (12-78) Alkaline Phosphatase 100 U/L (50-136) Troponin I High Sensitivity < 4 ng/L (4-50) L Total Protein 7.5 g/dL (6.0-8.3) Albumin 3.5 g/dL (3.5-5.0) Influenza Type A Antigen Negative For Type A Influenza Type B Antigen Negative For Type B SARS-CoV-2 Antigen (Rapid) PRESUMPTIVE NEGATIVE Group A Streptococcus Rapid negative (NEGATIVE) Urine Color LIGHT-YELLOW (YELLOW) Urine Appearance CLEAR (CLEAR) Urine pH 6.5 (5.0-8.0) Urine Specific [place] 1.012 (1.001-1.031) Urine Protein NEGATIVE mg/dL (NEGATIVE) Urine Glucose (UA) NEGATIVE mg/dL (NEGATIVE) Urine Ketones NEGATIVE mg/dL (NEGATIVE) Urine Occult Blood NEGATIVE (NEGATIVE) Urine Nitrate NEGATIVE (NEGATIVE) Urine Bilirubin NEGATIVE mg/dL (NEGATIVE) Urine Urobilinogen 0.2 mg/dL (0.2-1.0) Urine Leukocyte Esterase NEGATIVE Kishor/uL Labs Reviewed?: Yes EKG Comment: EKG reviewed and interpreted by me normal sinus rhythm no STEMI or STEMI equivalent normal intervals X-RAY Comment: X-ray reviewed and interpreted by me no signs of acute infiltrate or acute process. ED Course ED Course Orders Procedure Category Date Status Time Basic Metabolic Panel LAB 05/24/24 Complete 10:39 Cbc With Differential LAB 05/24/24 Complete 10:39 Hepatic Function Panel LAB 05/24/24 Complete 10:39 Urinalysis Profile LAB 05/24/24 Complete 10:39 Lactic Acid LAB 05/24/24 Complete 10:39 Blood Cult MAYCOL 05/24/24 In Process 10:39 Chest 1vw RAD 05/24/24 Resulted 10:39 12 Lead Ekg Tracing- EKG 05/24/24 Complete Technical 10:39 Troponin I High LAB 05/24/24 Complete Sensitivity 10:39 Covid19 (Sars Antigen LAB 05/24/24 Complete Rapid) 10:39 Influenza Type A & B, LAB 05/24/24 Complete Rapid 10:39 Rapid (Group A Strep) LAB 05/24/24 Complete 10:39 Ondansetron 4mg Inj PHA 05/24/24 Complete (Zofran 4mg Inj) 11:00 0.9%Nacl 1000ml (Ns PHA 05/24/24 Complete 1000ml) 11:00 Current Medications Medications (Trade) Dose Ordered Sig/Ino Route PRN Reason Start Time Stop Time Status Last Admin Dose Admin Ondansetron HCl (zoFRAN 4MG INJ) 4 mg ONCE ONCE IVP 05/24/24 11:00 05/24/24 11:01 DC 05/24/24 11:09 Sodium Chloride 1,000 ml @ 0 mls/hr ONCE ONCE IV 05/24/24 11:00 05/24/24 11:01 DC 05/24/24 11:09 Vital Signs Date Time Temp Pulse Resp B/P (MAP) Pulse Ox O2 Delivery O2 Flow Rate FiO2 05/24/24 13:32 99.0 70 16 145/75 100 Room Air* 0 21 05/24/24 11:19 98.2 67 18 144/74 100 Room Air* 0 21 05/24/24 10:20 98.2 78 16 149/76 99 Room Air 0 Medical Decision Making MDM MDM: Differential diagnosis: Rationale: Tests considered and ordered secondary to shared decision making include: Previous outside records reviewed: Old ER visits. Risk of complication and/or morbidity or mortality of patient management: None Medications-Per medication reconciliation Need for hospitalization: Patient does not meet criteria for hospitalization. Need for emergency major/minor surgery: No There are no social concerns with this patient. Prescription drug management Prescriptions will include symptomatic care Patient's prior external medical records from other ER visits were reviewed by me as indicated. Prior testing and results from previous visits were reviewed. Prior tests were taken into account with medical decision making and resource utilization, independent historian/historians were used to obtain complete medical history. I independently interpreted the test that were performed, results were reviewed by me and considered findings on radiology if ordered. Medical management and examination interpretation discussions were had by me with other qualified healthcare professionals as indicated for the patient's care. URI with left ear infection prescriptions given stable for discharge. DX & DISP Disposition: Discharge Departure Impression: Primary Impression: Left otitis media with effusion Condition: Stable Scripts Amoxicillin/Potassium Clav (Amox Tr-K Clv 875-125 mg Tab) 875 Mg-125 Mg Tablet 1 TAB PO BID for 10 Days, #20 TAB 0 Refills Prov: ANTHONY HUYNH MD 05/24/24 Referrals: RICARDO KAMINSKI MD (PCP) ANTHONY HUYNH MD May 24, 2024 14:13
== END 2024-05-24 14:22 | disposition home or self-care (01) ==
LOC: EDH 10:17
DX: H65.92 Unspecified nonsuppurative otitis media, left ear (principal); I10 Essential (primary) hypertension; Z20.822 Contact with and (suspected) exposure to COVID-19; Z90.710 Acquired absence of both cervix and uterus; Z98.890 Other specified postprocedural states
CPT/HCPCS: 99284; 96374; 71045; 96361; 87426; 80076; 84484; 80048; 85025; 87040 ×2; 87880; 87804 ×2; 83605; 81003; 36415; 93005; J7030; J2405